=== PATIENT | male | born 1945 | race Caucasian/White ===

== ENCOUNTER 2021-11-28 17:12 | Inpatient (IN) ==
[2021-11-29] MEDS ORDERED: D5% in Water 1,000 ML IVC PRN (11:08)
[2021-11-29] MEDS ORDERED: Dextrose 4 GM Chewable Tablets PO PRN ×2 (11:08)
[2021-11-29] MEDS ORDERED: *HR* Dextrose 50 % in Water (Syg) 50 ML SYRINGE IVP PRN (11:08)
[2021-11-29 11:42] LABS: Basophils % 0.1 %; Hematocrit 26.4 % (37.5-50.1); Hemoglobin 8.2 g/dL (12.9-16.9); Immature Granulocytes % 0.7 % (0-4); Lymphocytes # 0.4 K/mcL (0.6-4.6); Lymphocytes % 3.4 %; Mean Corpuscular HGB Conc 31.1 g/dL (31.6-35.5); Mean Corpuscular Hemoglobin 30.6 pg (28.0-33.3); Mean Corpuscular Volume 98.5 fL (83.0-100.0); Mean Platelet Volume 11.7 fL (9.4-12.4); Monocytes # 0.7 K/mcL (0.0-1.3); Monocytes % 6.1 %; Neutrophils # 9.6 K/mcL (1.6-8.9); Nucleated Red Blood Cells 0.2 /100 WBC (0); Platelet Count 135 K/mcL (140-400); Red Blood Count 2.68 M/mcL (4.19-5.50); Red Cell Distribution Width 16.5 % (11.5-14.5); Segmented Neutrophils % 89.7 %; White Blood Count 10.7 K/mcL (4.3-11.1)
[2021-11-29] MEDS: Sennosides/Docusate Sodium TABLET PO SCH ×2 (11:49→21:27)
[2021-11-29] MEDS: predniSONE 20 MG TABLET PO SCH (11:49)
[2021-11-29] MEDS: Aspirin Enteric Coated 81 MG Tablet PO SCH (11:50)
[2021-11-29] MEDS: PETROLATUM WHITE TP SCH (11:53)
[2021-11-29] MEDS: [UNRECOGNIZED DRUG - OTHER] TP SCH (11:53)
[2021-11-29] MEDS: Torsemide 20 MG TABLET PO SCH ×2 (11:56→18:17)
[2021-11-29] MEDS: carvediloL 6.25 MG TABLET PO SCH ×2 (11:57→18:17)
[2021-11-29 12:14] LABS: Blood Urea Nitrogen > 130 mg/dL (8-23); Calcium 7.1 mg/dL (8.6-10.3); Carbon Dioxide 30 mEq/L (23-29); Chloride 103 mEq/L (98-107); Glucose 236 mg/dL (70-105); Potassium 4.8 mEq/L (3.5-5.1); Sodium 142 mEq/L (136-145); eGFR For African Americans 21 (> 60); eGFR For Non-African Americans 18 (> 60)
[2021-11-29] MEDS: Apixaban 5 MG TABLET PO SCH ×2 (15:04→21:27)
[2021-11-29] MEDS: Insulin LISPRO 300 UNITS/3 ML VIAL SUBQ SCH ×3 (15:05→18:16)
[2021-11-29] MEDS: *HR* LORazepam 0.5 MG TABLET PO PRN (17:24)
[2021-11-29] MEDS: Albuterol 2.5 MG/3 ML NEBULIZER IH PRN (18:27)
[2021-11-29] MEDS: Budesonide/Formoterol 160/4.5 1 PUFF INH IH SCH (23:01)
[2021-11-30] MEDS: Insulin LISPRO 300 UNITS/3 ML VIAL SUBQ SCH ×5 (02:38→20:57)
[2021-11-30] MEDS: Albuterol 2.5 MG/3 ML NEBULIZER IH PRN ×2 (06:24→11:00)
[2021-11-30] MEDS: carvediloL 6.25 MG TABLET PO SCH ×2 (07:52→17:32)
[2021-11-30] MEDS: predniSONE 20 MG TABLET PO SCH (07:52)
[2021-11-30] MEDS: Sennosides/Docusate Sodium TABLET PO SCH ×2 (07:53→20:55)
[2021-11-30] MEDS: [UNRECOGNIZED DRUG - OTHER] TP SCH (07:53)
[2021-11-30] MEDS: Torsemide 20 MG TABLET PO SCH ×2 (07:53→17:32)
[2021-11-30] MEDS: Apixaban 5 MG TABLET PO SCH ×2 (07:53→20:56)
[2021-11-30] MEDS: PETROLATUM WHITE TP SCH (07:53)
[2021-11-30] MEDS: Aspirin Enteric Coated 81 MG Tablet PO SCH (07:53)
[2021-11-30] MEDS: *HR* LORazepam 0.5 MG TABLET PO PRN ×2 (09:46→21:20)
[2021-11-30] MEDS: Budesonide/Formoterol 160/4.5 1 PUFF INH IH SCH (10:51)
[2021-11-30] MEDS: Budesonide Neb 0.5 MG/2 ML IH SCH ×2 (11:00→22:25)
[2021-11-30] MEDS: Albumin 25% 25gram/100mL 25 GM/100 ML IV.SOLN IVPB SCH (18:29)
[2021-11-30] MEDS ORDERED: Albumin 25% 25gram/100mL 25 GM/100 ML IV.SOLN IVPB SCH (20:00)
[2021-12-01] MEDS: Albumin 25% 25gram/100mL 25 GM/100 ML IV.SOLN IVPB SCH ×3 (07:04→20:47)
[2021-12-01 07:32] LABS: Basophils % 0.1 %; Hematocrit 23.6 % (37.5-50.1); Hemoglobin 7.4 g/dL (12.9-16.9); Immature Granulocytes % 0.8 % (0-4); Lymphocytes # 0.5 K/mcL (0.6-4.6); Lymphocytes % 4.5 %; Mean Corpuscular HGB Conc 31.4 g/dL (31.6-35.5); Mean Corpuscular Hemoglobin 30.3 pg (28.0-33.3); Mean Corpuscular Volume 96.7 fL (83.0-100.0); Mean Platelet Volume 12.3 fL (9.4-12.4); Monocytes # 0.9 K/mcL (0.0-1.3); Monocytes % 7.5 %; Platelet Count 129 K/mcL (140-400); Red Blood Count 2.44 M/mcL (4.19-5.50); Red Cell Distribution Width 16.3 % (11.5-14.5); Segmented Neutrophils % 87.1 %; White Blood Count 11.5 K/mcL (4.3-11.1)
[2021-12-01 08:04] LABS: Calcium 7.8 mg/dL (8.6-10.3); Potassium 4.7 mEq/L (3.5-5.1)
[2021-12-01] MEDS: Insulin LISPRO 300 UNITS/3 ML VIAL SUBQ SCH ×4 (08:11→20:48)
[2021-12-01] MEDS: Sennosides/Docusate Sodium TABLET PO SCH ×2 (08:29→20:49)
[2021-12-01] MEDS: carvediloL 6.25 MG TABLET PO SCH ×2 (08:30→18:43)
[2021-12-01] MEDS: predniSONE 20 MG TABLET PO SCH (08:30)
[2021-12-01] MEDS: Aspirin Enteric Coated 81 MG Tablet PO SCH (08:30)
[2021-12-01] MEDS: Apixaban 5 MG TABLET PO SCH ×2 (08:30→20:48)
[2021-12-01] MEDS: Torsemide 20 MG TABLET PO SCH (08:30)
[2021-12-01] MEDS: [UNRECOGNIZED DRUG - OTHER] TP SCH (08:31)
[2021-12-01] MEDS: PETROLATUM WHITE TP SCH (08:31)
[2021-12-01] MEDS: *HR* HYDROcodone/Acet 5/325 mg TABLET PO PRN (08:56)
[2021-12-01] MEDS: Budesonide Neb 0.5 MG/2 ML IH SCH ×2 (09:38→22:32)
[2021-12-01] MEDS ORDERED: Furosemide 20 MG/2 ML VIAL IVP SCH (19:00)
[2021-12-01 19:39] LABS: ABG Base Excess -2 mEq/L (-2 to 3); ABG HCO3 28 mEq/L (21-27); ABG Oxygen Saturation 96 % (95-98); ABG PCO2 83 mmHg (35-45); ABG PH 7.13 pH Units (7.32-7.45); ABG PO2 114 mmHg (85-104); ABG TCO2 30 mEq/L (20-26)
[2021-12-01] MEDS: Furosemide 20 MG/2 ML VIAL IVP SCH (22:17)
[2021-12-02] MEDS ORDERED: Ondansetron 4 MG/2 ML VIAL IVP PRN (01:20)
[2021-12-02] MEDS: Melatonin 3 MG TABLET PO PRN ×2 (03:40→21:32)
[2021-12-02 04:27] LABS: ABG Base Excess 0 mEq/L (-2 to 3); ABG HCO3 27 mEq/L (21-27); ABG Oxygen Saturation 92 % (95-98); ABG PCO2 60 mmHg (35-45); ABG PH 7.27 pH Units (7.32-7.45); ABG PO2 74 mmHg (85-104); ABG TCO2 29 mEq/L (20-26)
[2021-12-02] MEDS: Albumin 25% 25gram/100mL 25 GM/100 ML IV.SOLN IVPB SCH ×2 (04:58→23:56)
[2021-12-02 08:34] LABS: Potassium 4.7 mEq/L (3.5-5.1)
[2021-12-02] MEDS: Insulin LISPRO 300 UNITS/3 ML VIAL SUBQ SCH ×4 (08:50→21:28)
[2021-12-02] MEDS: Budesonide Neb 0.5 MG/2 ML IH SCH ×2 (09:03→21:55)
[2021-12-02] MEDS: Aspirin Enteric Coated 81 MG Tablet PO SCH (09:17)
[2021-12-02] MEDS: Apixaban 5 MG TABLET PO SCH ×3 (09:17→21:33)
[2021-12-02] MEDS: Sennosides/Docusate Sodium TABLET PO SCH ×2 (09:17→21:31)
[2021-12-02] MEDS: predniSONE 20 MG TABLET PO SCH (09:18)
[2021-12-02] MEDS: PETROLATUM WHITE TP SCH (09:18)
[2021-12-02] MEDS: *HR* LORazepam 0.5 MG TABLET PO PRN ×2 (09:18→16:21)
[2021-12-02] MEDS: [UNRECOGNIZED DRUG - OTHER] TP SCH (09:18)
[2021-12-02] MEDS: carvediloL 6.25 MG TABLET PO SCH ×2 (09:18→16:30)
[2021-12-02] MEDS: Furosemide 20 MG/2 ML VIAL IVP SCH (09:19)
[2021-12-02] MEDS ORDERED: Furosemide 20 MG/2 ML VIAL IVP SCH (12:59)
[2021-12-02] MEDS ORDERED: Albumin 25% 25gram/100mL 25 GM/100 ML IV.SOLN IVPB SCH (13:00)
[2021-12-02] MEDS ORDERED: Furosemide 20 MG/2 ML VIAL IVP ONE (15:00)
[2021-12-02] MEDS: *HR* HYDROcodone/Acet 5/325 mg TABLET PO PRN (16:21)
[2021-12-02] MEDS: Albuterol 2.5 MG/3 ML NEBULIZER IH PRN (21:53)
[2021-12-03] MEDS: Furosemide 20 MG/2 ML VIAL IVP SCH ×2 (02:51→14:17)
[2021-12-03] MEDS: Albuterol 2.5 MG/3 ML NEBULIZER IH PRN (07:59)
[2021-12-03] MEDS: Budesonide Neb 0.5 MG/2 ML IH SCH (07:59)
[2021-12-03] MEDS: Insulin LISPRO 300 UNITS/3 ML VIAL SUBQ SCH ×3 (08:45→17:14)
[2021-12-03] MEDS: carvediloL 6.25 MG TABLET PO SCH ×2 (08:46→17:14)
[2021-12-03] MEDS: predniSONE 20 MG TABLET PO SCH (08:46)
[2021-12-03] MEDS: Aspirin Enteric Coated 81 MG Tablet PO SCH (08:46)
[2021-12-03] MEDS: Apixaban 5 MG TABLET PO SCH (08:46)
[2021-12-03] MEDS: Sennosides/Docusate Sodium TABLET PO SCH (08:46)
[2021-12-03] MEDS: PETROLATUM WHITE TP SCH (09:01)
[2021-12-03] MEDS: [UNRECOGNIZED DRUG - OTHER] TP SCH (09:01)
[2021-12-03] MEDS: *HR* LORazepam 0.5 MG TABLET PO PRN (09:45)
[2021-12-03] MEDS: Albumin 25% 25gram/100mL 25 GM/100 ML IV.SOLN IVPB SCH (11:58)
[2021-12-03 14:38] VITALS: RESP 26
[2021-12-03 16:44] VITALS: BP 138/77; PULSE 110; TEMP 94.3; O2SAT 92
== END 2021-12-03 17:32 | disposition hospice, inpatient (51) | DRG 637 ==
LOC: INPPIK 11-29 09:10
PROVIDERS: ADMIT Internal Medicine; ATTEND Internal Medicine

== ENCOUNTER 2021-12-03 16:45 | Inpatient (IN) ==
[2021-12-03] MEDS ORDERED: Morphine Sulfate 2 MG/ML SYRINGE IVP PRN (16:56)
[2021-12-03] MEDS ORDERED: *HR* LORazepam 2 MG/ML VIAL IVP PRN (16:56)
[2021-12-03] MEDS ORDERED: Atropine Sulfate 1% 40 DROP/2 ML BOTTLE SL PRN (16:56)
[2021-12-03] MEDS ORDERED: Ipratropium/Albuterol Neb 3 ML IH PRN (16:56)
[2021-12-03] MEDS ORDERED: Torsemide 20 MG TABLET PO SCH (21:00)
[2021-12-03] MEDS ORDERED: Apixaban 5 MG TABLET PO SCH (21:00)
[2021-12-03 21:20] VITALS: TEMP 94.4
[2021-12-03 22:50] VITALS: O2SAT 100
[2021-12-04 06:55] VITALS: BP 96/60; PULSE 92
[2021-12-04] MEDS ORDERED: carvediloL 6.25 MG TABLET PO SCH (08:00)
[2021-12-04 18:44] VITALS: RESP 29
== END 2021-12-04 20:35 | disposition expired | DRG 951 ==
LOC: INPPIK 18:21
PROVIDERS: ADMIT Internal Medicine Hospice and Palliative Medicine; ATTEND Internal Medicine Hospice and Palliative Medicine